=== PATIENT | male | born 1950 | race Caucasian/White ===

== ENCOUNTER 2019-09-23 11:12 | Emergency (ER) | payer BC, MEDICARE | END 2019-09-23 12:25 | disposition home or self-care (01) | LOC: MADERS 11:12 | DX: J30.2 Other seasonal allergic rhinitis (principal); J31.0 Chronic rhinitis; Z87.891 Personal history of nicotine dependence | CPT/HCPCS: 99283 ==

== ENCOUNTER 2019-09-28 19:53 | Emergency (ER) | payer MEDICARE ==
--- NOTE | 2019-09-28 20:34 | RAD ---
XR Chest Pa Lat STANDARD History: Chest pain. Shortness of breath Comparison: Radiograph 2012 Findings: Heart size mildly enlarged. Pulmonary arteries are dilated. There are interstitial opacities the hilum bilaterally. No pneumothorax. No significant effusion. Impression: 1. Splenomegaly and pulmonary hypertension. 2. Mild increased interstitial markings along the hilum reflect edema versus atypical infectious proc ess.
--- NOTE | 2019-09-28 20:41 | RAD ---
XR Ribs Lt>=2 View STANDARD History: Pain Comparison: None. Findings: No acute displaced rib fracture. No pneumothorax. Measures opacities are noted throughout t he hilum. Impression: No acute displaced rib fracture.
[2019-09-28] MEDS ORDERED: HYDROcodone/Acetaminophen 5/325 mg Tablet ONE (21:13)
[2019-09-28] MEDS ORDERED: Ibuprofen 600 MG TAB ONE (21:13)
[2019-09-28] MEDS ORDERED: Azithromycin 250 MG TAB ONE (21:13)
== END 2019-09-28 21:20 | disposition home or self-care (01) ==
LOC: MADERS 19:53
DX: S29.011A Strain of muscle and tendon of front wall of thorax, initial encounter (principal); J18.9 Pneumonia, unspecified organism; R01.1 Cardiac murmur, unspecified; F17.210 Nicotine dependence, cigarettes, uncomplicated; X58.XXXA Exposure to other specified factors, initial encounter
CPT/HCPCS: 71046

== ENCOUNTER 2019-10-08 15:12 | Emergency (ER) | payer MEDICARE ==
[2019-10-08] MEDS ORDERED: Sodium Chloride 0.9% 100 ML ONE (15:18)
[2019-10-08] MEDS ORDERED: Diltiazem 125 MG/25 ML ONE (15:18)
[2019-10-08 15:38] LABS: #Basophils 0.1 thou/uL (0.0-0.2); #Eosinphils 0.5 thou/uL (0.0-0.7); #Lymphocytes 2.4 thou/uL (1.20-3.40); #Monocytes 0.7 thou/uL (0.11-0.59); #Neutrophils 4.6 thou/uL (1.40-6.50); %Basophils 1.2 % (0.0-1.0); %Eosinophils 5.8 % (0.0-10.0); %Lymphocytes 29.4 % (21.0-51.0); %Monocytes 8.2 % (0.0-10.0); %Neutrophils 55.4 % (42.0-75.0); Hemoglobin 15.2 g/dL (14.0-18.0); Mean Corpuscular Hemoglobin 27.4 pg (27.0-31.0); Mean Corpuscular Volume 88.4 fL (78.0-98.0); Mean Platelet Volume 6.5 fL (7.4-10.4); Platelet Count 302 thou/uL (130-400); RBC Distribution Width 12.8 % (11.5-14.5); Red Blood Cell (RBC) Count 5.53 mill/uL (4.70-6.10); White Blood Cell (WBC) Count 8.3 thou/uL (4.8-10.8)
--- NOTE | 2019-10-08 15:44 | RAD ---
EXAM: CHEST ONE VIEW: 10/08/19 HISTORY: Atrial fibrillation with RVR, dyspnea. COMPARISON: 09/28/19. FINDINGS: Bilateral vascular congestion with increased linear and interstitial markings bilaterally concerning for minimal interstitial edema. No confluent pneumonia. Stable appearance from prior exam. IMPRESSION: Stable bilateral vascular congestion with possible mild interstitial edema. Borderline cardiomegaly. No significant change from prior most recent study. POS: RRE
[2019-10-08 15:49] LABS: INR-International Normal Ratio 0.9; PTT 28.3 SEC (22.9-36.1); Prothrombin Time 12.3 SEC (12.0-14.7)
[2019-10-08] MEDS ORDERED: Sodium Chloride 0.9% 1,000 ML ONE (15:55)
[2019-10-08 15:58] LABS: ALT (SGPT) 31 U/L (8-55); AST (SGOT) 25 U/L (5-34); Albumin 4.1 g/dL (3.4-4.8); Alkaline Phosphatase 55 U/L (40-110); Anion Gap 16 mmol/L (10-20); BUN (Urea Nitrogen) 19 mg/dL (8.4-25.7); Bilirubin, Total 0.3 mg/dL (0.2-1.2); CK (CPK) 164 U/L (30-200); Calc. Creatinine Clearance 0 mL/min (70-130); Calcium 9.2 mg/dL (7.8-10.44); Carbon Dioxide 22 mmol/L (23-31); Chloride 106 mmol/L (98-107); Estimated GFR-MDRD 79; Globulin 3.8 g/dL (2.4-3.5); Glucose 124 mg/dL (80-115); Potassium 4.3 mmol/L (3.5-5.1); Protein, Total 7.9 g/dL (5.8-8.1); Sodium 140 mmol/L (136-145)
[2019-10-08] MEDS ORDERED: Enoxaparin Sodium 60 MG/0.6 ML SYRINGE ONE (16:45)
[2019-10-08] MEDS ORDERED: Enoxaparin Sodium 40 MG/0.4 ML SYRINGE ONE (16:45)
[2019-10-08] MEDS ORDERED: Aspirin 325 MG TAB ONE (16:45)
== END 2019-10-08 18:41 | disposition home or self-care (01) ==
LOC: MADERS 15:12
DX: I50.9 Heart failure, unspecified (principal); I48.91 Unspecified atrial fibrillation; Z87.891 Personal history of nicotine dependence
CPT/HCPCS: 71045; 80053; 82550; 83880; 84443; 84484; 85025; 85610; 85730; 93005; 96365; 96366; 96372; 96376; J1650; J3490; J7050

== ENCOUNTER 2020-07-21 13:29 | Emergency (ER) | payer MEDICARE ==
[2020-07-21] MEDS ORDERED: Aspirin Chewable 81 MG TAB ONE (14:16)
[2020-07-21] MEDS ORDERED: Nitroglycerin 2% Ointment 1 INCH/1 GM Packet ONE (14:16)
--- NOTE | 2020-07-21 14:20 | RAD ---
EXAM: CHEST ONE VIEW HISTORY: Dyspnea. COMPARISON: 10/08/2019 FINDINGS: Cardiac silhouette is magnified by projection but does appear enlarged. Increased perihilar interstit ial opacities are seen bilaterally greater on the left. No consolidation or pleural fluid is appreciated. Pulmonary vasculature is mildly increased. No other interval change. Metallic and radiop aque densities overlie the upper abdomen likely to overlying artifact. IMPRESSION: Cardiomegaly with mild pulmonary vascular congestion suggesting CHF. There are bilateral increased in terstitial opacities asymmetrically greater on the left which may represent asymmetric pulmonary edema. Infectious process would be a consideration.
[2020-07-21 14:29] LABS: #Basophils 0.1 thou/uL (0.0-0.2); #Eosinphils 0.6 thou/uL (0.0-0.7); #Lymphocytes 1.8 thou/uL (1.20-3.40); #Neutrophils 5.7 thou/uL (1.40-6.50); %Basophils 1.6 % (0.0-1.0); %Eosinophils 6.5 % (0.0-10.0); %Lymphocytes 19.9 % (21.0-51.0); %Monocytes 10.3 % (0.0-10.0); %Neutrophils 61.8 % (42.0-75.0); Hemoglobin 14.4 g/dL (14.0-18.0); Mean Corpuscular HGB CONC 31.6 g/dL (32.0-36.0); Mean Corpuscular Hemoglobin 27.2 pg (27.0-31.0); Mean Platelet Volume 6.7 fL (7.4-10.4); Platelet Count 275 thou/uL (130-400); RBC Distribution Width 13.1 % (11.5-14.5); Red Blood Cell (RBC) Count 5.31 mill/uL (4.70-6.10); White Blood Cell (WBC) Count 9.2 thou/uL (4.8-10.8)
[2020-07-21 14:40] LABS: ALT (SGPT) 19 U/L (8-55); AST (SGOT) 18 U/L (5-34); Alkaline Phosphatase 68 U/L (40-110); Anion Gap 16 mmol/L (10-20); BUN (Urea Nitrogen) 12 mg/dL (8.4-25.7); Bilirubin, Total 0.4 mg/dL (0.2-1.2); CK (CPK) 115 U/L (30-200); Calc. Creatinine Clearance 0 mL/min (70-130); Calcium 9.1 mg/dL (7.8-10.44); Carbon Dioxide 25 mmol/L (23-31); Chloride 102 mmol/L (98-107); Globulin 3.5 g/dL (2.4-3.5); Glucose 106 mg/dL (80-115); Potassium 4.1 mmol/L (3.5-5.1); Protein, Total 7.5 g/dL (5.8-8.1); Sodium 139 mmol/L (136-145)
[2020-07-21] MEDS ORDERED: Furosemide 40 MG/4 ML VIAL ONE (14:48)
[2020-07-21] MEDS ORDERED: Doxycycline Hyclate 100 MG VIAL ONE (15:12)
[2020-07-21] MEDS ORDERED: Sodium Chloride 0.9% 100 ML ONE (15:12)
[2020-07-21] MEDS ORDERED: cefTRIAXone\\ROCEPHIN 1 GM VIAL ONE (15:12)
[2020-07-21 15:30] LABS: Bilirubin Negative (Negative); Blood, Urine Negative (Negative); Clarity Clear (Clear); Glucose, Urine (Dipstick) Negative (Negative); Ketone, Urine Negative (Negative); Leukocyte Negative (Negative); Nitrite Negative (Negative); Protein, Urine (Dipstick) Negative (Neg-Trace); Specific Gravity, Urine 1.025 (1.005-1.030); Urobilinogen 0.2 mg/dL (Less than 2)
[2020-07-21 16:42] LABS: SARS-CoV-2 NAA Rapid Test Not Detected (NotDetected)
== END 2020-07-21 18:25 | disposition short-term general hospital (02) ==
LOC: MADERS 13:29
DX: J96.90 Respiratory failure, unspecified, unspecified whether with hypoxia or hypercapnia (principal); I50.9 Heart failure, unspecified; I48.91 Unspecified atrial fibrillation; E78.5 Hyperlipidemia, unspecified; I10 Essential (primary) hypertension; E66.9 Obesity, unspecified; Z87.891 Personal history of nicotine dependence; Z79.01 Long term (current) use of anticoagulants; Z79.899 Other long term (current) drug therapy
CPT/HCPCS: 0240U; 71045; 80053; 81003; 82550; 83605; 83880; 84484; 85025; 87040; 87086; 93005; 94760; 96365; 96366; 96367; 96375; J0696; J1940; J3490